=== PATIENT | female | born 1955 | race Caucasian/White ===

== ENCOUNTER → 2016-12-18 | Outpatient (CLI) | payer OTHER ==
[~2016-12-18] MED LIST: ACCOLATE20 MG PO; ALLEGRA ALLERG180 MG PO; ARMOUR THYROID60 MG PO; AUGMENTIN TAB875 MG PO; BUSPIRONE HCL15 MG PO; CALCIUM600 MG PO; CHANTIX0.5 MG PO; DALIRESP 500500 MCG PO; DALIRESP500 MCG PO; DOXYCYCLINE HY100 MG PO; FLONASE 0.05% N16 GM; FLOVENT DISKUS50 MCG INH; HABITROL 14 MG P1 EA PO; HABITROL 7 MG PA1 EA TD; HYDROCHLOROTHIA25 MG PO; HYDROXYZINE HCL25 MG PO; IPRAT-ALBUT 0.5-3 ML INH; LEVAQUIN750 MG PO; MEDROL DOSEPAK 24 MG PO; NYSTATIN100000 UNI PO; PERFOROMIS20 MCG/21 HHN; PRAVACHOL40 MG PO; ROBITUSSIN AC480 ML PO; SPIRIVA18 MCG INH; SYMBICORT 160-1 INHA INH; SYMBICORT 16010.2 GM INH; VENTOLIN HFA 66.7 GM INH; VENTOLIN/PROVE0.5 ML INH; VITAMIN D2000 UNIT PO
== END ==
LOC: RAD 15:37 → PROG CARE 12-19 14:05 → RAD 12-19 14:05
DX: J44.1 Chronic obstructive pulmonary disease with (acute) exacerbation (principal); J18.9 Pneumonia, unspecified organism; R91.8 Other nonspecific abnormal finding of lung field
CPT/HCPCS: 71020

== ENCOUNTER 2016-12-19 14:24 | Inpatient (IN) | payer OTHER ==
[~2016-12-19] VITALS: Ht 160 cm; Wt 66.7 kg
[~2016-12-19 14:24] MED LIST changes: -ACCOLATE20 MG PO; -DALIRESP500 MCG PO; -FLONASE 0.05% N16 GM; -FLOVENT DISKUS50 MCG INH; -HABITROL 7 MG PA1 EA TD; -LEVAQUIN750 MG PO; -PERFOROMIS20 MCG/21 HHN; -PRAVACHOL40 MG PO; -SYMBICORT 16010.2 GM INH; -VENTOLIN/PROVE0.5 ML INH
[2016-12-19] MEDS ORDERED: PRAVACHOL40 MG PO (15:10)
[2016-12-19] MEDS ORDERED: MEDROL DOSEPAK 24 MG PO (15:10)
[2016-12-19 16:14] LABS: HEMOGLOBIN 16.5 gm/dl (12.3-15.3); RED BLOOD COUNT 5.4 M/UL (4.00-5.10); WHITE BLOOD COUNT 6.8 K/UL (4.5-11.0)
[2016-12-19 16:42] LABS: BUN/CREATININE RATIO 32 (0-10)
[2016-12-20 04:08] LABS: HEMOGLOBIN 15.3 gm/dl (12.3-15.3); RED BLOOD COUNT 4.96 M/UL (4.00-5.10)
[2016-12-20 04:27] LABS: WHITE BLOOD COUNT 4.2 K/UL (4.5-11.0)
[2016-12-20 05:03] LABS: BUN/CREATININE RATIO 40 (0-10)
[2016-12-22 03:45] LABS: HEMOGLOBIN 14.5 gm/dl (12.3-15.3); RED BLOOD COUNT 4.79 M/UL (4.00-5.10); WHITE BLOOD COUNT 4.1 K/UL (4.5-11.0)
[2016-12-22 04:04] LABS: BUN/CREATININE RATIO 48 (0-10)
[2016-12-23 03:58] LABS: HEMOGLOBIN 14.5 gm/dl (12.3-15.3); RED BLOOD COUNT 4.79 M/UL (4.00-5.10); WHITE BLOOD COUNT 4.4 K/UL (4.5-11.0)
[2016-12-23 04:14] LABS: BUN/CREATININE RATIO 44 (0-10)
[2016-12-24 04:15] LABS: HEMOGLOBIN 14.8 gm/dl (12.3-15.3); RED BLOOD COUNT 4.91 M/UL (4.00-5.10); WHITE BLOOD COUNT 5.2 K/UL (4.5-11.0)
[2016-12-24 04:39] LABS: BUN/CREATININE RATIO 58 (0-10)
[2016-12-25 06:05] LABS: HEMOGLOBIN 14.6 gm/dl (12.3-15.3); RED BLOOD COUNT 4.8 M/UL (4.00-5.10); WHITE BLOOD COUNT 4.7 K/UL (4.5-11.0)
[2016-12-25 07:44] LABS: BUN/CREATININE RATIO 55 (0-10)
[2016-12-25] MEDS ORDERED: LEVAQUIN750 MG PO (14:14)
== END 2016-12-25 17:45 | disposition home or self-care (01) | DRG 189 ==
LOC: PROG CARE 14:24 → M/S 12-23 06:00
PROVIDERS: Emergency Medicine; Internal Medicine Pulmonary Disease; ADMIT Family Medicine
PROC: 0B958ZX Drainage of Right Middle Lobe Bronchus, Via Natural or Artificial Opening Endoscopic, Diagnostic (ICD-10-PCS; 2016-12-24)
PROC: 0B968ZX Drainage of Right Lower Lobe Bronchus, Via Natural or Artificial Opening Endoscopic, Diagnostic (ICD-10-PCS; principal; 2016-12-24 09:30)
DX: J96.22 Acute and chronic respiratory failure with hypercapnia (principal); J18.9 Pneumonia, unspecified organism; J44.0 Chronic obstructive pulmonary disease with (acute) lower respiratory infection; J98.11 Atelectasis; J44.1 Chronic obstructive pulmonary disease with (acute) exacerbation; B37.0 Candidal stomatitis; J96.21 Acute and chronic respiratory failure with hypoxia; I10 Essential (primary) hypertension; E78.5 Hyperlipidemia, unspecified; E03.9 Hypothyroidism, unspecified; I27.2 Other secondary pulmonary hypertension; D75.1 Secondary polycythemia; M85.80 Other specified disorders of bone density and structure, unspecified site; F17.210 Nicotine dependence, cigarettes, uncomplicated; G89.29 Other chronic pain; M54.5 Low back pain; F41.1 Generalized anxiety disorder; F32.9 Major depressive disorder, single episode, unspecified; H91.90 Unspecified hearing loss, unspecified ear; E66.9 Obesity, unspecified; Z68.26 Body mass index [BMI] 26.0-26.9, adult; Z91.19 Patient's noncompliance with other medical treatment and regimen; Z63.5 Disruption of family by separation and divorce; Z99.81 Dependence on supplemental oxygen; Z79.51 Long term (current) use of inhaled steroids; Z79.899 Other long term (current) drug therapy; Z82.3 Family history of stroke; Z82.49 Family history of ischemic heart disease and other diseases of the circulatory system
CPT/HCPCS: ECHO; 36415; 36600; 71020; 71250; 80048; 80053; 81001; 82550; 82553; 82803; 84484; 85025; 85027; 87040; 87070; 87205; 93005; 93306; 94640; 94664; 94667; 94668; J1650; J1956; J2250; J7040; J7050; Q0177

== ENCOUNTER → 2017-02-03 | Outpatient (CLI) | payer OTHER ==
[~2017-02-03] MED LIST changes: +ACCOLATE20 MG PO; +DALIRESP500 MCG PO; +FLONASE 0.05% N16 GM; +FLOVENT DISKUS50 MCG INH; +HABITROL 7 MG PA1 EA TD; +LEVAQUIN750 MG PO; +PERFOROMIS20 MCG/21 HHN; +PRAVACHOL40 MG PO; +SYMBICORT 16010.2 GM INH; +VENTOLIN/PROVE0.5 ML INH
== END ==
LOC: HEART 5 09:59
DX: J17 Pneumonia in diseases classified elsewhere (principal)
CPT/HCPCS: 71020-FX

== ENCOUNTER 2017-03-02 10:32 | Inpatient (IN) | payer OTHER ==
[~2017-03-02] VITALS: Ht 162.6 cm; Wt 64.9 kg
[~2017-03-02 10:32] MED LIST changes: -ACCOLATE20 MG PO; -DALIRESP500 MCG PO; -FLONASE 0.05% N16 GM; -FLOVENT DISKUS50 MCG INH; -HABITROL 7 MG PA1 EA TD; -PERFOROMIS20 MCG/21 HHN; -SYMBICORT 16010.2 GM INH; -VENTOLIN/PROVE0.5 ML INH
[2017-03-02 11:02] LABS: HEMOGLOBIN 15.9 gm/dl (12.3-15.3); RED BLOOD COUNT 5.23 M/UL (4.00-5.10); WHITE BLOOD COUNT 5.6 K/UL (4.5-11.0)
[2017-03-02 11:22] LABS: BUN/CREATININE RATIO 34 (0-10)
[2017-03-02] MEDS ORDERED: ACCOLATE20 MG PO (23:38)
[2017-03-02] MEDS ORDERED: ARMOUR THYROID60 MG PO (23:40)
[2017-03-02] MEDS ORDERED: FLOVENT DISKUS50 MCG INH (23:42)
[2017-03-02] MEDS ORDERED: HYDROCHLOROTHIA25 MG PO (23:43)
[2017-03-02] MEDS ORDERED: HYDROXYZINE HCL25 MG PO (23:44)
[2017-03-02] MEDS ORDERED: SYMBICORT 16010.2 GM INH (23:44)
[2017-03-02] MEDS ORDERED: HABITROL 7 MG PA1 EA TD (23:44)
[2017-03-02] MEDS ORDERED: VENTOLIN/PROVE0.5 ML INH (23:45)
[2017-03-03 06:59] LABS: HEMOGLOBIN 14.2 gm/dl (12.3-15.3); RED BLOOD COUNT 4.75 M/UL (4.00-5.10); WHITE BLOOD COUNT 4.3 K/UL (4.5-11.0)
[2017-03-03 07:25] LABS: BUN/CREATININE RATIO 53 (0-10)
[2017-03-05] MEDS ORDERED: MEDROL DOSEPAK 24 MG PO (15:20)
[2017-03-05] MEDS ORDERED: PERFOROMIS20 MCG/21 HHN (15:35)
[2017-03-05] MEDS ORDERED: DALIRESP500 MCG PO (15:35)
[2017-03-05] MEDS ORDERED: FLONASE 0.05% N16 GM (15:36)
== END 2017-03-05 17:15 | disposition home or self-care (01) | DRG 189 ==
LOC: ER1 10:32 → M/S 13:15 → ZEROF 13:15 → PROG CARE 13:15 → M/S 03-04 15:08
PROVIDERS: Emergency Medicine; ADMIT Internal Medicine
DX: J96.22 Acute and chronic respiratory failure with hypercapnia (principal); J44.1 Chronic obstructive pulmonary disease with (acute) exacerbation; J98.11 Atelectasis; J96.21 Acute and chronic respiratory failure with hypoxia; F17.210 Nicotine dependence, cigarettes, uncomplicated; Z66 Do not resuscitate; E03.9 Hypothyroidism, unspecified; I10 Essential (primary) hypertension; G89.29 Other chronic pain; M54.9 Dorsalgia, unspecified; F41.8 Other specified anxiety disorders; Z99.81 Dependence on supplemental oxygen; Z79.51 Long term (current) use of inhaled steroids; Z79.899 Other long term (current) drug therapy; Z87.01 Personal history of pneumonia (recurrent); Z82.5 Family history of asthma and other chronic lower respiratory diseases; Z82.3 Family history of stroke; Z82.49 Family history of ischemic heart disease and other diseases of the circulatory system
CPT/HCPCS: 36415; 36600; 71010; 80048; 80053; 82550; 82553; 82803; 82962; 83605; 83735; 83880; 84484; 85025; 87040; 87070; 87205; 93005; 94640; 94660; 96365; 96367; 96375; 99285; J1120; J1956; J2543; J2920; J2930; J3370; J7030; J7050; J7070; J7509; Q0177

== ENCOUNTER → 2021-11-29 | Outpatient (CLI) | payer MEDICARE, OTHER ==
[~2021-11-29] MED LIST changes: +ACCOLATE20 MG PO; +ALLEGRA-D 12 H1 EACH PO; +ALLERGY RELIEF180 MG PO; +ARMOUR THYROID30 MG PO; +ASMANEX110 MCG INH; +CEFDINIR300 MG PO; +DALIRESP500 MCG PO; +FLONASE 0.05% N16 GM; +FLOVENT DISKUS50 MCG INH; +FLUOXETINE HCL20 M1 PO; +FLUZONE QU60 MCG/015 IM; +HABITROL 7 MG PA1 EA TD; +HUMIBID LA TAB600 MG PO; +IPRAT-ALBUT 0.5-3 ML NEB; +LEVAQUIN500 MG PO; +MEDROL4 MG PO; +NICODERM CQ1 EAC2 TD; +PANTOPRAZOLE SO40 MG PO; +PERFOROMIS20 MCG/21 HHN; +PREDNISONE20 MG PO; +SPIRIVA RESPIMAT4 GM INH; +SYMBICORT 16010.2 GM INH; +SYNTHROID75 MCG PO; +THERAGRAN M TAB1 EA PO; +VENTOLIN/PROVE0.5 ML INH; +VITAMIN D32000 UNI1 PO; +ZOLOFT50 MG PO
== END ==
LOC: RT 11:50
DX: J96.10 Chronic respiratory failure, unspecified whether with hypoxia or hypercapnia (principal)
CPT/HCPCS: 36600; 82803